=== PATIENT | female | born 2000 | race Caucasian/White ===

== ENCOUNTER 2024-07-26 19:56 | Emergency (ER) | payer OTHER, SELFPAY ==
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
[2024-07-26 21:28] VITALS: BP 128/81
== END 2024-07-26 21:35 | disposition home or self-care (01) ==
LOC: EMR 19:56
PROVIDERS: EMERGENCY PHYSICIAN Student in an Organized Health Care Education/Training Program
DX: S06.0XAA Concussion with loss of consciousness status unknown, initial encounter (principal); B34.9 Viral infection, unspecified; W22.8XXA Striking against or struck by other objects, initial encounter
CPT/HCPCS: 99282